=== PATIENT | male | born 1945 | race Two or more races ===

== ENCOUNTER 2019-12-03 18:28 | Emergency (ER) | payer OTHER, MEDICAID ==
[~2019-12-03] VITALS: Ht 170.2 cm; Wt 89.8 kg
[2019-12-03 18:47] VITALS: Ht 170.2 cm; Wt 89.8 kg
[2019-12-03 19:32] VITALS: BP 159/87
== END 2019-12-03 19:32 | disposition home or self-care (01) ==
LOC: ED 18:28
DX: N39.0 Urinary tract infection, site not specified (principal); Z88.0 Allergy status to penicillin

== ENCOUNTER 2019-12-05 20:41 | Emergency (ER) | payer OTHER, MEDICAID ==
[~2019-12-05] VITALS: Ht 165.1 cm; Wt 91.2 kg
[2019-12-05 20:46] VITALS: Ht 165.1 cm; Wt 91.2 kg
[2019-12-05 22:40] VITALS: BP 129/67
== END 2019-12-05 22:40 | disposition home or self-care (01) ==
LOC: ED 20:41
DX: R33.9 Retention of urine, unspecified (principal); R39.198 Other difficulties with micturition; R10.30 Lower abdominal pain, unspecified; Z88.0 Allergy status to penicillin

== ENCOUNTER 2019-12-07 10:03 | Emergency (ER) | payer OTHER, MEDICAID ==
[~2019-12-07] VITALS: Ht 170.2 cm; Wt 89.8 kg
[2019-12-07 12:00] VITALS: BP 132/73
== END 2019-12-07 11:30 | disposition home or self-care (01) ==
LOC: ED 10:03
DX: Z46.6 Encounter for fitting and adjustment of urinary device (principal); Z88.0 Allergy status to penicillin

== ENCOUNTER 2020-01-23 13:49 | Emergency (ER) | payer OTHER, MEDICAID ==
[~2020-01-23] VITALS: Ht 167.6 cm; Wt 91.2 kg
[2020-01-23 13:56] VITALS: Ht 167.6 cm; Wt 91.2 kg
[2020-01-23 14:52] VITALS: BP 126/70
== END 2020-01-23 14:52 | disposition home or self-care (01) ==
LOC: ED 13:49
DX: J18.9 Pneumonia, unspecified organism (principal); Z88.0 Allergy status to penicillin
CPT/HCPCS: 87804

== ENCOUNTER 2020-04-15 01:08 | Emergency (ER) | payer OTHER, MEDICAID ==
[~2020-04-15] VITALS: Ht 170.2 cm; Wt 91.2 kg
[2020-04-15 01:12] VITALS: Ht 170.2 cm; Wt 91.2 kg
[2020-04-15 02:25] VITALS: BP 108/56
== END 2020-04-15 02:25 | disposition home or self-care (01) ==
LOC: ED 01:08
DX: R33.9 Retention of urine, unspecified (principal); R10.30 Lower abdominal pain, unspecified; R34 Anuria and oliguria; Z88.0 Allergy status to penicillin

== ENCOUNTER 2020-09-20 07:04 | Emergency (ER) | payer OTHER, MEDICAID ==
[~2020-09-20] VITALS: Ht 170.2 cm; Wt 86.2 kg
[2020-09-20 07:06] VITALS: Ht 170.2 cm; Wt 86.2 kg
[2020-09-20 07:54] LABS: BASOPHIL % 0.2 % (0-2); PLATELET COUNT 190 x10^3mcL (130-400); RED CELL DISTRIBUTION WIDTH 14.9 % (11.5-14.5)
[2020-09-20 08:16] LABS: CARBON DIOXIDE 26.7 mmol/L (21-32); CHLORIDE SERUM 107 mmol/L (98-107); CREATININE SERUM 0.9 mg/dL (0.7-1.3); GLUCOSE SERUM 120 mg/dL (74-106); POTASSIUM SERUM 3.7 mmol/L (3.5-5.1); SODIUM SERUM 144 mmol/L (136-145)
[2020-09-20 08:20] LABS: ALBUMIN 3.6 g/dL (3.4-5.0); ALKALINE PHOSPHATASE 64 U/L (46-116); ALT/SGPT 20 U/L (16-63); AST/SGOT 17 U/L (15-37); BILIRUBIN TOTAL 1.03 mg/dL (0.20-1.00); TOTAL PROTEIN, SERUM 6.9 g/dL (6.4-8.2)
[2020-09-20 09:29] VITALS: BP 133/67
== END 2020-09-20 09:29 | disposition home or self-care (01) ==
LOC: ED 07:04
PROVIDERS: Emergency Medicine
DX: R42 Dizziness and giddiness (principal); R11.10 Vomiting, unspecified; Z88.0 Allergy status to penicillin
CPT/HCPCS: J2765; J7030; J8597